=== PATIENT | male | born 1950 | race Caucasian/White ===

== ENCOUNTER → 2016-12-05 | Outpatient (CLI) | payer OTHER ==
[~2016-12-05] MED LIST: LANS30CA PO; LEVO100T8 PO
== END | disposition home or self-care (01) ==
LOC: RAD 14:44
PROVIDERS: ATTEND Nurse Practitioner
DX: K57.32 Diverticulitis of large intestine without perforation or abscess without bleeding (principal); N20.0 Calculus of kidney; K76.9 Liver disease, unspecified; K86.89 Other specified diseases of pancreas; M47.896 Other spondylosis, lumbar region
CPT/HCPCS: 36415; 74177; 82565